=== PATIENT | male | born 1960 | race Caucasian/White ===

== ENCOUNTER 2016-07-31 14:02 | Emergency (ER) | payer OTHER, MEDICARE ==
[2016-07-31 14:33] VITALS: BP 154/90
[2016-07-31] MEDS ORDERED: MORPHINE SULFATE 10 MG/ML SYRINGE IM STA (16:03)
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
--- NOTE | 2016-07-31 16:40 | XR ---
EXAMINATION TYPE: XR lumbosacral spine min 4V DATE OF EXAM: 07/31/2016 4:36 PM COMPARISON: NONE HISTORY: Chronic right lower back pain TECHNIQUE: 5 views FINDINGS: Vertebra have normal alignment. Posterior elements are intact. There is mild spurring of th e endplates throughout the lumbar spine. I see no compression fracture. There is slight narrowing at L3-4 and L5-S1 disc spaces. Sacroiliac joints appear normal. IMPRESSION: Mild spondylotic changes. No fracture. Atheromatous aorta.
--- NOTE | 2016-07-31 17:44 | CT ---
EXAMINATION TYPE: CT abdomen pelvis wo con DATE OF EXAM: 07/31/2016 5:32 PM COMPARISON: NONE HISTORY: Right sided hip and leg pain CT DLP: 1154.2 mGycm Automated exposure control for dose reduction was used. TECHNIQUE: Helical acquisition of images was performed from the lung bases through the pelvis. FINDINGS: Lung bases are clear. There is no pleural effusion. There is no pericardial effusion. Liver shows some fatty infiltration. There are small calcified gallstones. Bile ducts are not dilated . Spleen and pancreas appear normal. There is a 1.5 cm right adrenal mass. Kidneys have normal size a nd contour. There is no hydronephrosis. There is no retroperitoneal adenopathy. There is no ascites. Appendix appears normal. I see no intestinal wall thickening. There are no dilated loops. Bladder dis tends smoothly. There is no sign of a pelvic mass. There is no ascites. There is mild atherosclerotic vascular calcification. Bony structures appear intact. IMPRESSION: SMALL CALCIFIED GALLSTONES. NO DILATED DUCTS. NORMAL APPENDIX. FATTY INFILTRATION OF THE LIVER. 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 NO SIGN OF ACUTE ABDOMEN AND PELVIS.
[2016-07-31 17:59] VITALS: PULSE 87; RESP 18; TEMP 98.4
== END 2016-07-31 17:59 | disposition home or self-care (01) ==
LOC: EC 14:02
DX: M54.16 Radiculopathy, lumbar region (principal); Z85.46 Personal history of malignant neoplasm of prostate; Z87.891 Personal history of nicotine dependence; Z79.899 Other long term (current) drug therapy
CPT/HCPCS: 72110; 74176; 99284; 96372; J2270

== ENCOUNTER 2018-01-25 08:02 | Day surgery (SDC) | payer MEDICARE, OTHER ==
[2018-01-23 11:06] VITALS: BMI 42.9
[~2018-01-25 08:02] MED LIST: DEXAMETHASONE SOD PHOSPHATE 10 MG/ML 1 ML VIAL IV ONE; HYDROmorphone 1 MG/ML 1 ML SYRINGE IVP PRN; LACTATED RINGERS 1,000 ML IV SCH; LIDOCAINE 1% 20 ML VIAL (10MG/ML) FOR IV START INTRADERMA PRN; ONDANSETRON 4 MG/2 ML VIAL IVP ONE; SCOPOLAMINE 1.5MG/72HR PATCH TRANSDERM ONE
[2018-01-25] MEDS ORDERED: LACTATED RINGERS 1,000 ML IV ONE (08:53)
[2018-01-25 08:59] VITALS: TEMP 98
[2018-01-25] MEDS ORDERED: LIDOCAINE 1% INJ 10MG/ML (20 ML MDV) ONE (09:40)
[2018-01-25] MEDS ORDERED: PROPOFOL 10 MG/ML 20 ML VIAL IV ONE (09:40)
[2018-01-25 10:08] VITALS: RESP 16
--- NOTE | 2018-01-25 10:13 | P.PCN ---
Date of Procedure: 01/25/18 Procedure(s) Performed: Procedure: Colonoscopy and polypectomy. Preoperative diagnosis: History of polyps. Postoperative diagnosis: 1. Hepatic flexure polyp removed piecemeal with the snare. 2. Two small distal sigmoid polyp snared. 3. No large polyps or cancer. Preparation HalfLytely prep. Sedation: Was provided by anesthesia. Brief clinical history: The patient is a 58-year-old male who is scheduled for this evaluation because of history of polyps. His last exam was in 2012. He has no abdominal complaints, bleeding or anemia. The patient had prostate cancer since his last exam for which he had surgery and radiation. There is a pelvic mass that was just noted on a recent MRI that Dr. Garcia is following. Procedure: With the patient on his left lateral decubitus position and after informed consent and adequate sedation, the perianal area was inspected and it did not show any fissures or fistulas. There were no masses felt on digital rectal examination. The Olympus CFQ 160L video colonoscope was then inserted in the rectum in the usual fashion and advanced to the cecum. There was a medium-sized polyp around the hepatic flexure which was removed piecemeal with the snare and was retrieved retrieved by suction. There were 2 small polyps in the distal sigmoid which were snared and retrieved by suction. No other polyps or cancer or any obvious diverticular disease or other pathology was noted at this time. I retroflexed the endoscope in the rectum before the endoscope was withdrawn. The patient tolerated the procedure well. Plan: The patient was reassured. Will await pathology results. I anticipate repeating this exam in 3-5 years. He will follow up with you as planned.
[2018-01-25 10:25] VITALS: BP 108/62; PULSE 59
== END 2018-01-25 10:39 | disposition home or self-care (01) ==
LOC: ORWHC2ENDO 08:02
DX: Z12.11 Encounter for screening for malignant neoplasm of colon (principal); D12.3 Benign neoplasm of transverse colon; K63.5 Polyp of colon; I10 Essential (primary) hypertension; G47.33 Obstructive sleep apnea (adult) (pediatric); F32.9 Major depressive disorder, single episode, unspecified; E66.01 Morbid (severe) obesity due to excess calories; Z68.41 Body mass index [BMI] 40.0-44.9, adult; Z85.46 Personal history of malignant neoplasm of prostate; Z92.3 Personal history of irradiation; Z99.89 Dependence on other enabling machines and devices; Z86.010 Personal history of colon polyps; Z79.899 Other long term (current) drug therapy
CPT/HCPCS: 88305; 45385; J2001; J2704

== ENCOUNTER → 2019-10-30 | Outpatient (CLI) | payer MEDICARE ==
[2019-10-30 14:30] LABS: Basophils # (A) 0.1 k/uL (0-0.2); Basophils % (A) 1 %; Eosinophils # (A) 0.3 k/uL (0-0.7); Eosinophils % (A) 4 %; HCT 41.5 % (39.0-53.0); Lymphocytes # (A) 2.3 k/uL (1.0-4.8); Lymphocytes % (A) 36 %; MCH 30.7 pg (25.0-35.0); MCHC 33.6 g/dL (31.0-37.0); MCV 91.4 fL (80.0-100.0); Mean Platelet Volume 6.9; Monocytes # (A) 0.4 k/uL (0-1.0); Monocytes % (A) 6 %; Neutrophils # (A) 3.2 k/uL (1.3-7.7); Neutrophils % (A) 52 %; Platelet Count 254 k/uL (150-450); RBC 4.54 m/uL (4.30-5.90); RDW 13.1 % (11.5-15.5); WBC 6.3 k/uL (3.8-10.6)
[2019-10-30 19:21] LABS: ALT 22 U/L (10-49); AST 23 U/L (14-35); African American GFR (CKD) 108.7 (60.0-200.0); Albumin/Globulin Ratio 1.76 (1.60-3.17); Alkaline Phosphatase 66 U/L (41-126); Calcium 9.2 mg/dL (8.7-10.3); Carbon Dioxide 25.5 mmol/L (21.6-31.8); Chloride 106 mmol/L (96-109); Globulin 2.5 g/dL (1.6-3.3); Glucose 96 mg/dL (70-110); Non-African American GFR(CKD) 93.8 (60.0-200.0); Potassium 4.3 mmol/L (3.5-5.5); Sodium 139 mmol/L (135-145); Total Bilirubin 0.5 mg/dL (0.2-1.2); Total Protein 6.9 g/dL (6.2-8.2)
[2019-10-30 19:30] LABS: Prostate Specific Antigen <0.1 ng/mL (0.0-3.5)
== END | disposition home or self-care (01) ==
LOC: LABWHC1 12:06
PROVIDERS: ATTEND Internal Medicine
DX: C61 Malignant neoplasm of prostate (principal)
CPT/HCPCS: 36415; 80053; 84153; 85025

== ENCOUNTER → 2020-04-13 | Outpatient (CLI) | payer MEDICARE ==
[2020-04-13 21:57] LABS: Basophils # (A) 0.06 X 10*3/uL (0.00-0.10); Eosinophils # (A) 0.29 X 10*3/uL (0.04-0.35); HCT 43.6 % (39.6-50.0); HGB 14.8 g/dL (13.0-17.0); Lymphocytes # (A) 2.12 X 10*3/uL (0.90-5.00); Lymphocytes % (A) 36.3 %; MCH 31.6 pg (27.0-32.0); MCHC 33.9 g/dL (32.0-37.0); Mean Platelet Volume 9.6 fL (9.5-12.2); Monocytes # (A) 0.57 X 10*3/uL (0.20-1.00); Monocytes % (A) 9.8 %; Neutrophils # (A) 2.79 X 10*3/uL (1.80-7.70); Neutrophils % (A) 47.7 %; Platelet Count 238 X 10*3/uL (140-440); RBC 4.69 X 10*6/uL (4.40-5.60); RDW 12.7 % (11.5-14.5); WBC 5.84 X 10*3/uL (4.50-10.00)
[2020-04-13 22:48] LABS: African American GFR (CKD) 113.3 (60.0-200.0); Albumin 4.8 g/dL (3.80-4.90); Albumin/Globulin Ratio 2.29 (1.60-3.17); Anion Gap 11.1 mmol/L (4.00-12.00); BUN/Creat Ratio 17.5 Ratio (12.00-20.00); Calcium 9.5 mg/dL (8.7-10.3); Carbon Dioxide 25.9 mmol/L (21.6-31.8); Globulin 2.1 g/dL (1.6-3.3); Non-African American GFR(CKD) 97.8 (60.0-200.0); Potassium 4.4 mmol/L (3.5-5.5); Total Bilirubin 0.7 mg/dL (0.2-1.2); Total Protein 6.9 g/dL (6.2-8.2)
[2020-04-13 23:13] LABS: Prostate Specific Antigen 0.3 ng/mL (0.0-3.5)
== END | disposition home or self-care (01) ==
LOC: LABWHC1 12:15
PROVIDERS: ATTEND Internal Medicine
DX: C61 Malignant neoplasm of prostate (principal)
CPT/HCPCS: 36415; 80053; 84153; 85025

== ENCOUNTER → 2020-10-14 | Outpatient (CLI) | payer MEDICARE ==
[2020-10-14 20:02] LABS: Basophils # (A) 0.09 X 10*3/uL (0.00-0.10); Basophils % (A) 1.4 %; Eosinophils # (A) 0.25 X 10*3/uL (0.04-0.35); Eosinophils % (A) 3.9 %; HCT 40.5 % (39.6-50.0); HGB 14.1 g/dL (13.0-17.0); Lymphocytes # (A) 2.08 X 10*3/uL (0.90-5.00); Lymphocytes % (A) 32.2 %; MCH 31.8 pg (27.0-32.0); MCHC 34.8 g/dL (32.0-37.0); MCV 91.4 fL (80.0-97.0); Monocytes % (A) 7.8 %; Neutrophils # (A) 3.51 X 10*3/uL (1.80-7.70); Neutrophils % (A) 54.4 %; Platelet Count 251 X 10*3/uL (140-440); RBC 4.43 X 10*6/uL (4.40-5.60); RDW 12.4 % (11.5-14.5); WBC 6.45 X 10*3/uL (4.50-10.00)
[2020-10-14 22:10] LABS: ALT 28 U/L (10-49); AST 25 U/L (14-35); Albumin/Globulin Ratio 1.74 (1.60-3.17); Alkaline Phosphatase 77 U/L (41-126); BUN/Creat Ratio 18.89 Ratio (12.00-20.00); Calcium 9.4 mg/dL (8.7-10.3); Carbon Dioxide 27.5 mmol/L (21.6-31.8); Chloride 106 mmol/L (96-109); Globulin 2.7 g/dL (1.6-3.3); Glucose 107 mg/dL (70-110); Non-African American GFR(CKD) 93.2 (60.0-200.0); Potassium 4.8 mmol/L (3.5-5.5); Sodium 140 mmol/L (135-145); Total Bilirubin 0.9 mg/dL (0.2-1.2); Total Protein 7.4 g/dL (6.2-8.2)
[2020-10-14 22:30] LABS: Prostate Specific Antigen <0.1 ng/mL (0.0-3.5)
== END | disposition home or self-care (01) ==
LOC: LABWHC1 12:58
PROVIDERS: ATTEND Internal Medicine
DX: C61 Malignant neoplasm of prostate (principal); Z79.818 Long term (current) use of other agents affecting estrogen receptors and estrogen levels
CPT/HCPCS: 36415; 80053; 84153; 85025

== ENCOUNTER → 2021-04-03 | Outpatient (CLI) | payer MEDICARE ==
[2021-04-03 16:21] LABS: Basophils # (A) 0.06 X 10*3/uL (0.00-0.10); Basophils % (A) 1.3 %; Eosinophils # (A) 0.25 X 10*3/uL (0.04-0.35); Eosinophils % (A) 5.4 %; HGB 14.3 g/dL (13.0-17.0); Immature Grans, Automated 0.2 %; Lymphocytes # (A) 1.42 X 10*3/uL (0.90-5.00); Lymphocytes % (A) 30.7 %; MCHC 33.3 g/dL (32.0-37.0); MCV 93.3 fL (80.0-97.0); Mean Platelet Volume 9.4 fL (9.5-12.2); Monocytes # (A) 0.47 X 10*3/uL (0.20-1.00); Monocytes % (A) 10.2 %; NRBC Per 100 WBC 0 /100 WBCS (0.0-0.0); Neutrophils # (A) 2.41 X 10*3/uL (1.80-7.70); Neutrophils % (A) 52.2 %; Platelet Count 239 X 10*3/uL (140-440); RBC 4.61 X 10*6/uL (4.40-5.60); RDW 12.9 % (11.5-14.5); WBC 4.62 X 10*3/uL (4.50-10.00)
[2021-04-03 16:35] LABS: ALT 28 U/L (10-49); AST 23 U/L (14-35); African American GFR (CKD) 112.8 (60.0-200.0); Albumin 4.5 g/dL (3.8-4.9); Albumin/Globulin Ratio 1.57 (1.60-3.17); Alkaline Phosphatase 66 U/L (41-126); BUN/Creat Ratio 18.24 Ratio (12.00-20.00); Blood Urea Nitrogen 14.5 mg/dL (9.0-27.0); Calcium 9.6 mg/dL (8.7-10.3); Carbon Dioxide 23.9 mmol/L (20.0-27.5); Chloride 102 mmol/L (96-109); Globulin 2.9 g/dL (1.6-3.3); Glucose 126 mg/dL (70-110); Non-African American GFR(CKD) 97.4 (60.0-200.0); Potassium 4.1 mmol/L (3.5-5.5); Sodium 137 mmol/L (135-145); Total Protein 7.4 g/dL (6.2-8.2)
[2021-04-03 17:13] LABS: Prostate Specific Antigen <0.01 ng/mL (0.00-4.50)
== END | disposition home or self-care (01) ==
LOC: LABWHC1 09:18
PROVIDERS: ATTEND Nurse Practitioner
DX: C61 Malignant neoplasm of prostate (principal); C79.89 Secondary malignant neoplasm of other specified sites
CPT/HCPCS: 36415; 80053; 84153; 85025

== ENCOUNTER → 2021-10-25 | Outpatient (CLI) | payer MEDICARE ==
[2021-10-26 01:13] LABS: ALT 27 U/L (10-49); AST 19 U/L (14-35); African American GFR (CKD) 97.7 (60.0-200.0); Albumin 4.6 g/dL (3.8-4.9); Albumin/Globulin Ratio 1.78 (1.60-3.17); Alkaline Phosphatase 70 U/L (41-126); BUN/Creat Ratio 21.09 Ratio (12.00-20.00); Blood Urea Nitrogen 20.5 mg/dL (9.0-27.0); Calcium 10.2 mg/dL (8.7-10.3); Carbon Dioxide 23.9 mmol/L (20.0-27.5); Chloride 105 mmol/L (96-109); Globulin 2.6 g/dL (1.6-3.3); Glucose 118 mg/dL (70-110); Non-African American GFR(CKD) 84.3 (60.0-200.0); Potassium 4.7 mmol/L (3.5-5.5); Sodium 141 mmol/L (135-145); Total Protein 7.2 g/dL (6.2-8.2)
[2021-10-26 01:14] LABS: Basophils % (A) 1.4 %; Eosinophils # (A) 0.27 X 10*3/uL (0.04-0.35); Eosinophils % (A) 3.7 %; HCT 43.4 % (39.6-50.0); HGB 14.3 g/dL (13.0-17.0); Immature Grans, Automated 0.4 %; Lymphocytes # (A) 2.35 X 10*3/uL (0.90-5.00); MCH 30.9 pg (27.0-32.0); MCHC 32.9 g/dL (32.0-37.0); MCV 93.7 fL (80.0-97.0); Mean Platelet Volume 9.8 fL (9.5-12.2); Monocytes # (A) 0.74 X 10*3/uL (0.20-1.00); Monocytes % (A) 10.1 %; NRBC Per 100 WBC 0 /100 WBCS (0.0-0.0); Neutrophils # (A) 3.85 X 10*3/uL (1.80-7.70); Neutrophils % (A) 52.4 %; Platelet Count 266 X 10*3/uL (140-440); RBC 4.63 X 10*6/uL (4.40-5.60); RDW 12.9 % (11.5-14.5); WBC 7.34 X 10*3/uL (4.50-10.00)
[2021-10-26 02:15] LABS: Prostate Specific Antigen <0.01 ng/mL (0.00-4.50)
== END | disposition home or self-care (01) ==
LOC: LABWHC1 16:00
PROVIDERS: ATTEND Nurse Practitioner Acute Care
DX: C61 Malignant neoplasm of prostate (principal); C79.89 Secondary malignant neoplasm of other specified sites
CPT/HCPCS: 36415; 80053; 84153; 85025

== ENCOUNTER → 2021-12-28 | Outpatient (CLI) | payer MEDICARE, OTHER ==
--- NOTE | 2021-12-28 10:49 | MR ---
EXAMINATION TYPE: MR lumbar spine wo con DATE OF EXAM: 12/28/2021 COMPARISON: NONE HISTORY: Low back pain that radiates down both legs. TECHNIQUE: T1 and T2 axial and sagittal images of the lumbar spine are submitted. FINDINGS: Exam mildly limited due to motion There is no abnormal signal seen within the visualized sp inal cord or paraspinal soft tissues. At L1-2 there is no evidence of degenerative disc disease, disc herniation, or canal stenosis. Neural foramina are normal. At L2-3 there is mild hypertrophic change since. No disc herniation or signal is maintained with no e vidence of degenerative disc disease. No foraminal encroachment At L3-4 there is moderate degenerative disc disease with broad-based disc bulging change since. Mild effacement of the thecal sac and bilateral foraminal encroachment. At L4-5 there is mild disc desiccation with maintenance of disc space. More advanced facet arthropath y with minimal bulging. No canal stenosis. No evidence of focal herniation or foraminal encroachment. At L5-S1 there is there is an annular tear is focal central and left paracentral disc herniation effa cing the left nerve root measuring approximately 6 x 17 mm in AP and transverse dimension respectivel y. Extends toward the left lateral recess. IMPRESSION: 1. There is a broad-based central left paracentral disc herniation L5-S1 measuring 6 x 17 mm with eff acement of the left nerve root correlate for radiculopathy as level. 2. Moderate degenerative disc disease L3-L4 with diffuse disc bulging or protrusion or changes since resulting in moderate bilateral foraminal approach. Correlate for radiculopathy within this distribut ion. 3. Multilevel degenerative disc disease and facet arthropathy.
== END | disposition home or self-care (01) ==
LOC: RADMRIMAIN 09:13
DX: M51.17 Intervertebral disc disorders with radiculopathy, lumbosacral region (principal); M47.26 Other spondylosis with radiculopathy, lumbar region
CPT/HCPCS: 72148

== ENCOUNTER → 2022-11-02 | Outpatient (CLI) | payer MEDICARE ==
[2022-11-02 16:08] LABS: ALT 29 U/L (10-49); AST 18 U/L (14-35); Albumin 4.6 d/dL (3.8-4.9); Albumin/Globulin Ratio 1.64 Ratio (1.60-3.17); Alkaline Phosphatase 62 U/L (41-126); BUN/Creat Ratio 20.78 Ratio (12.00-20.00); Blood Urea Nitrogen 18.7 mg/dL (9.0-27.0); Carbon Dioxide 24.5 mmol/L (21.6-31.8); Chloride 105 mmol/L (96-109); Globulin 2.8 d/dL (1.6-3.3); Glucose 155 mg/dL (70-110); Potassium 4.3 mmol/L (3.5-5.5); Sodium 140 mmol/L (135-145); Total Bilirubin 0.4 mg/dL (0.3-1.2); Total Protein 7.4 d/dL (6.2-8.2)
[2022-11-02 16:11] LABS: Prostate Specific Antigen <0.01 ng/mL (0.000-4.500)
[2022-11-02 16:33] LABS: Basophils # (A) 0.07 X 10*3/uL (0.00-0.10); Basophils % (A) 1.2 %; Eosinophils # (A) 0.17 X 10*3/uL (0.04-0.35); Eosinophils % (A) 2.9 %; HCT 43.5 % (39.6-50.0); Lymphocytes # (A) 1.59 X 10*3/uL (0.90-5.00); Lymphocytes % (A) 27.4 %; MCH 31.8 pg (27.0-32.0); MCHC 34.5 d/dL (32.0-37.0); MCV 92.2 FL (80.0-97.0); Mean Platelet Volume 9.6 FL (9.5-12.2); Monocytes % (A) 6.9 %; NRBC Per 100 WBC 0 X 10*3/uL (0.00-0.01); Neutrophils # (A) 3.54 X 10*3/uL (1.80-7.70); Neutrophils % (A) 61.1 %; Platelet Count 254 X 10*3/uL (140-440); RBC 4.72 X 10*6/uL (4.40-5.60); RDW 12.6 % (11.5-14.5)
== END | disposition home or self-care (01) ==
LOC: LABWHC1 10:41
PROVIDERS: ATTEND Nurse Practitioner Acute Care
DX: C61 Malignant neoplasm of prostate (principal)
CPT/HCPCS: 36415; 80053; 84153; 85025

== ENCOUNTER → 2023-02-28 | Outpatient (CLI) | payer MEDICARE ==
[2023-02-28 15:23] LABS: HGB 14.6 g/dL (13.0-17.0); MCH 30.7 pg (27.0-32.0); MCV 90.5 FL (80.0-97.0); Mean Platelet Volume 9.5 FL (9.5-12.2); NRBC Per 100 WBC 0 X 10*3/uL (0.00-0.01); Platelet Count 237 X 10*3/uL (140-440); RBC 4.75 X 10*6/uL (4.40-5.60); RDW 12.4 % (11.5-14.5); WBC 6.48 X 10*3/uL (4.50-10.00)
[2023-02-28 15:30] LABS: ALT 24 U/L (10-49); AST 16 U/L (14-35); Albumin 4.5 g/dL (3.8-4.9); Albumin/Globulin Ratio 1.73 Ratio (1.60-3.17); Alkaline Phosphatase 60 U/L (41-126); BUN/Creat Ratio 18.22 Ratio (12.00-20.00); Blood Urea Nitrogen 16.4 mg/dL (9.0-27.0); Carbon Dioxide 27.9 mmol/L (21.6-31.8); Chloride 102 mmol/L (96-109); Chol/HDL Ratio 4.87 Ratio; Globulin 2.6 g/dL (1.6-3.3); Glucose 122 mg/dL (70-110); LDL Cholesterol,Calculated 117.7 mg/dL (0.0-131.0); Potassium 4.4 mmol/L (3.5-5.5); Sodium 141 mmol/L (135-145); Total Bilirubin 0.5 mg/dL (0.3-1.2); Total Protein 7.1 g/dL (6.2-8.2)
== END | disposition home or self-care (01) ==
LOC: LABWHC1 09:49
PROVIDERS: ATTEND Nurse Practitioner Adult Health
DX: I10 Essential (primary) hypertension (principal); E78.2 Mixed hyperlipidemia
CPT/HCPCS: 36415; 80053; 80061; 85027

== ENCOUNTER 2023-03-07 06:01 | Day surgery (SDC) | payer MEDICARE ==
[2023-03-07] MEDS ORDERED: HEPARIN SODIUM,PORCINE 10,000 UNIT in SODIUM CHLORIDE 0.9% 1,000 ML IRRIGATION PRN (06:23)
[2023-03-07] MEDS ORDERED: ASPIRIN 325 MG TAB PO STA (06:23)
[2023-03-07] MEDS ORDERED: NITROGLYCERIN SL TABS 0.4 MG TAB SUBLINGUAL PRN (06:23)
[2023-03-07] MEDS ORDERED: ALPRAZolam 0.25 MG TAB PO PRN (06:23)
[2023-03-07] MEDS ORDERED: HEPARIN SODIUM,PORCINE (1 ML) 2,500 UNIT in SODIUM CHLORIDE 0.9% 250 ML IRRIGATION PRN (06:23)
[2023-03-07] MEDS ORDERED: SODIUM CHLORIDE 0.9% 1,000 ML in EMPTY BAG 1 BAG IV SCH (06:23)
[2023-03-07] MEDS ORDERED: ALPRAZolam 0.5 MG TAB PO PRN (06:23)
[2023-03-07] MEDS ORDERED: SODIUM CHLORIDE 0.9% 1,000 ML IV ONE (07:09)
[2023-03-07 07:15] VITALS: RESP 16; TEMP 98.1
[2023-03-07] MEDS ORDERED: VERAPAMIL 2.5 MG/ML 2 ML AMP ONE (07:17)
[2023-03-07] MEDS ORDERED: HEPARIN SODIUM 1,000 UN/ML (10ML VL) ONE (07:17)
[2023-03-07] MEDS ORDERED: LIDOCAINE 1% INJ 10MG/ML (20 ML MDV) ONE (07:17)
[2023-03-07] MEDS ORDERED: fentaNYL (PF) 50 MCG/ML 2 ML AMP ONE (07:17)
[2023-03-07] MEDS ORDERED: fentaNYL (PF) 50 MCG/ML 2 ML AMP IVP ONE (07:27)
[2023-03-07] MEDS ORDERED: LIDOCAINE 1% INJ 10MG/ML (20 ML MDV) SQ ONE (07:28)
[2023-03-07] MEDS ORDERED: VERAPAMIL SYRINGE (5 MG/10 ML) INTRAARTER ONE (07:29)
[2023-03-07] MEDS ORDERED: HEPARIN SODIUM 1,000 UN/ML (10ML VL) IVP ONE (07:36)
[2023-03-07] MEDS ORDERED: IOPAMIDOL-300 100ML BTL INJ ONE (07:42)
[2023-03-07] MEDS ORDERED: RX INFO: IV CONTRAST WAS GIVEN 1 EACH MISC MISCELLANE PRN (07:51)
--- NOTE | 2023-03-07 07:56 | P.CARDCATH ---
Date of Procedure: 03/07/23 Description of Procedure: Cardiac Catheterization: The patient is a 63-year-old male with a history of hypertension and a prior history of smoking who has been complaining of sudden onset dyspnea on exertion and had an abnormal MPI. Recommendations were made regarding cardiac catheterization, the risks and the complications were discussed with the patient who is in full understanding and agreement. Procedure Description: Patient was brought to tutorial laboratory supervisor in fasting semi-sedated state after receiving Fentanyl and Benadryl achieiving moderate conscious sedated state. Using Xylocaine Anesthesia and modified Seldinger technique, a 6-[place] sheath was introduced in the right radial artery . Subsequently, selective coronary angiography was performed using a 5-[place] 3.5 bend Jose G catheter. Multiple views of the coronary artery including hemiaxial views were obtained. The 5-[place] pigtail catheter was used to cross the aortic valve and LVEDP was calculated. Following that, catheter and sheath were removed. Hemostasis was obtained with deployment of vascular band . There was no immediate complication. Patient was returned to room in stable condition. Of note, the patient received a total of 5000 units of intravenous heparin as well as intra-arterial verapamil. Findings: Left main: This is a large size vessel, bifurcating into LAD and left circumflex, left main has no obstructive disease LAD: This is a large size vessel reaching to the apex, giving rise to a large diagonal branch and mid segment. The LAD and its branches have no obstructive disease Left circumflex: This is a nondominant vessel, large in caliber, giving rise to 3 obtuse marginal branch. The first 2 are branching very proximally. The left circumflex and its branches have no obstructive disease RCA: This is a large dominant vessel, bifurcating distally to PDA and PLV. The right coronary artery is tortuous. The right coronary artery and its branches have no obstructive disease Left Ventriculogram: Not performed Hemodynamics: There was no gradient across the aortic valve , LVEDP was 6-10 mmHg Conclusion: 1. Normal coronary arteries 2. Right dominance 3. Normal LVEDP Recommendations: I see no evidence to suggest obstructive disease, I have recommended to continue medical therapy with aggressive coronary risks modifications. The findings and the recommendations were discussed with the patient and the family and they were in full understanding and agreement. Duration of sedation is 17 minutes.
[2023-03-07] MEDS ORDERED: SODIUM CHLORIDE 0.9% 1,000 ML IV SCH (08:00)
[2023-03-07 11:26] VITALS: BP 129/67; PULSE 63
[2023-03-08] MEDS ORDERED: CITALOPRAM HYDROBROMIDE 20 MG TAB PO SCH (09:00)
[2023-03-08] MEDS ORDERED: amLODIPine 10 MG TAB PO SCH (09:00)
[2023-03-08] MEDS ORDERED: predniSONE 5 MG TAB PO SCH (09:00)
[2023-03-08] MEDS ORDERED: ASPIRIN 81 MG PO SCH (09:00)
== END 2023-03-07 12:03 | disposition home or self-care (01) ==
LOC: CATHCVL 06:01
PROVIDERS: ATTEND Internal Medicine Interventional Cardiology
DX: R94.39 Abnormal result of other cardiovascular function study (principal); I10 Essential (primary) hypertension; Z79.899 Other long term (current) drug therapy; Z87.891 Personal history of nicotine dependence
CPT/HCPCS: 93458; C1769 ×2; C1894; J2001; J3010; J1644; Q9967

== ENCOUNTER → 2023-04-28 | Outpatient (CLI) | payer MEDICARE ==
[2023-04-28 15:54] LABS: Basophils # (A) 0.06 X 10*3/uL (0.00-0.10); Eosinophils # (A) 0.22 X 10*3/uL (0.04-0.35); Eosinophils % (A) 3.8 %; HGB 14.4 g/dL (13.0-17.0); Lymphocytes # (A) 1.41 X 10*3/uL (0.90-5.00); Lymphocytes % (A) 24.6 %; MCH 31.8 pg (27.0-32.0); MCHC 34.3 g/dL (32.0-37.0); MCV 92.7 FL (80.0-97.0); Mean Platelet Volume 9.9 FL (9.5-12.2); Monocytes # (A) 0.49 X 10*3/uL (0.20-1.00); Monocytes % (A) 8.6 %; NRBC Per 100 WBC 0 X 10*3/uL (0.00-0.01); Neutrophils # (A) 3.52 X 10*3/uL (1.80-7.70); Neutrophils % (A) 61.5 %; Platelet Count 242 X 10*3/uL (140-440); RBC 4.53 X 10*6/uL (4.40-5.60); RDW 12.6 % (11.5-14.5); WBC 5.73 X 10*3/uL (4.50-10.00)
[2023-04-28 16:12] LABS: ALT 32 U/L (10-49); AST 20 U/L (14-35); Albumin 4.6 g/dL (3.8-4.9); Alkaline Phosphatase 58 U/L (41-126); BUN/Creat Ratio 20.12 Ratio (12.00-20.00); Blood Urea Nitrogen 16.1 mg/dL (9.0-27.0); Calcium 10.1 mg/dL (8.7-10.3); Carbon Dioxide 28.6 mmol/L (21.6-31.8); Chloride 100 mmol/L (96-109); Globulin 2.7 g/dL (1.6-3.3); Glucose 184 mg/dL (70-110); Potassium 4.1 mmol/L (3.5-5.5); Sodium 141 mmol/L (135-145); Total Bilirubin 0.6 mg/dL (0.3-1.2); Total Protein 7.3 g/dL (6.2-8.2)
[2023-04-28 16:21] LABS: Prostate Specific Antigen <0.01 ng/mL (0.000-4.500)
== END | disposition home or self-care (01) ==
LOC: LABWHC1 11:32
PROVIDERS: ATTEND Nurse Practitioner Acute Care
DX: C79.89 Secondary malignant neoplasm of other specified sites (principal); C61 Malignant neoplasm of prostate
CPT/HCPCS: 36415; 80053; 84153; 85025